=== PATIENT | female | born 1965 | race Caucasian/White ===

== ENCOUNTER 2017-10-08 06:00 | Day surgery (SDC) | payer OTHER ==
[2017-10-08] MEDS ORDERED: DIPRIVAN 200 MG/20 ML IV ONE (06:01)
[2017-10-08] MEDS ORDERED: Lactated Ringers 1,000 ML IV SCH (06:30)
[2017-10-08] MEDS ORDERED: Lactated Ringers 1,000 ML IV ONE (08:38)
[2017-10-08 09:07] VITALS: O2SAT 100
--- NOTE | 2017-10-08 09:08 | OP ---
SURGERY DATE/TIME: 10/08/2017812 PREOPERATIVE DIAGNOSIS: Screening colonoscopy. POSTOPERATIVE DIAGNOSIS: Normal colon. PROCEDURE: Colonoscopy. SURGEON: Geraldo Kearns M.D. ANESTHESIA: MAC by Jose Tobias CRNA. ESTIMATED BLOOD LOSS: None. SPECIMENS: None. DESCRIPTION OF PROCEDURE: After informed written consent was obtained, the patient was taken to the endoscopy suite. She underwent monitored anesthesia and a digital rectal exam showed normal sphincter tone and no internal lesions. Next, the scope was inserted into the rectum and sequentially the entire colonic mucosa was traversed. The level of cecum was reached and verified with direct visualization of ileocecal valve. Upon withdrawal careful mucosal inspection revealed no obvious abnormalities. Prep was noted to be good. Prior to withdrawal retroflexion was performed and within normal limits. The scope was removed and the patient was transferred to the recovery room in excellent condition.
[2017-10-08 09:36] VITALS: BP 117/57; PULSE 50
== END 2017-10-08 09:40 | disposition home or self-care (01) ==
LOC: SDC 06:00
PROVIDERS: ATTEND Family Medicine
PROC: 0DJD8ZZ Inspection of Lower Intestinal Tract, Via Natural or Artificial Opening Endoscopic (ICD-10-PCS; principal; 2017-10-08)
DX: Z12.11 Encounter for screening for malignant neoplasm of colon (principal)
CPT/HCPCS: 00810; J2704